=== PATIENT | female | born 1955 | race Caucasian/White ===

== ENCOUNTER 2025-01-20 08:33 | Inpatient (IN) | payer OTHER, SELFPAY ==
[2025-01-18 12:56] VITALS: BP 134/87
[2025-01-18 13:23] LABS: Hematocrit 36.9 % (37.0-47.0); Hemoglobin 12.4 g/dL (12.0-16.0); Mean Corp Hgb Conc. 33.6 g/dL (33.0-37.0); Mean Corpuscular Volume 90.4 fL (81.0-99.0); Nucleated Red Blood Cells % 0 %; Platelet Count 245 10^3/uL (130-400); Red Cell Dist. Width 12.4 % (11.5-14.5)
[2025-01-18 13:31] LABS: ALT (SGPT) 13 U/L (0-35); AST (SGOT) 20 U/L (14-36); Albumin 4.6 g/dl (3.5-5.0); Alkaline Phosphatase 165 U/L (38-126); Blood Urea Nitrogen 16 mg/dl (7-17); Calcium 9.9 mg/dl (8.4-10.2); Carbon Dioxide 27 mmol/L (22-30); Chloride 107 mmol/L (98-107); Glucose 101 mg/dl (70-99); Potassium 5.0 mmol/L (3.5-5.1); Sodium 139 mmol/L (135-145); Total Protein 7.3 g/dl (6.3-8.2); eGFR > 60.00
--- NOTE | 2025-01-18 15:22 | ED.GENMED ---
History of Present Illness
General
Chief Complaint: Skin Problem
Source: patient
Time Seen by Provider: 01/18/25 14:44
History of Present Illness
History of Present Illness:
69-year-old female with left arm discomfort and redness. She had a foreign body removed from her left arm yesterday. She describes a foreign body as being about an inch long. This is done in the urgent care. Starting this morning and getting
worse throughout the day she noted more redness around the area and now red streaks up the arm. She is not diabetic. She denies fevers or chills. No nausea or vomiting. She states she feels well otherwise.
Phy Exam
Physical Exam
Physical Exam:
General: Well-appearing female in no acute respiratory distress
HEENT: Normal cephalic atraumatic
Skin: Erythema noted to the ulnar left forearm in a circular pattern with several lymphangitic streaks spreading to the mid upper arm. There is no underlying fluctuance or induration. This is slightly tender to the touch mild axillary adenopathy
noted
Heart: Regular rate and rhythm
Lungs: Clear no wheeze
Course
Orders/Labs/Results
Orders:
Orders
01/18/25 13:07
Complete Blood Count/With Diff Urgent
Comprehensive Metabolic Panel Urgent
Lactate Level [Lactic Acid] Urgent
Blood Culture Urgent
ARIANNA Source: Blood/Venous
Specimen Description:
01/18/25 15:11
0.9% Sodium Chloride 500 ml [Nss] 500 ml IV BOLUS
01/18/25 15:15
CeFAZolin 1 GRAM [Ancef] 1 gram in 5 ml IV NOW
Abnormal Lab Results
01/18/25
13:07
RBC 4.08 L 10^6/uL
(4.20-5.40)
Hct 36.9 L %
(37.0-47.0)
MPV 10.5 H fL
(7.4-10.4)
Absolute Lymphs (auto) 1.1 L 10^3/uL
(1.2-3.4)
Neutrophils % 77.4 H %
(42.2-75.2)
Lymphocytes % 14.7 L %
(20.5-51.1)
Glucose 101 H mg/dl
(70-99)
Alkaline Phosphatase 165 H U/L
(38-126)
01/18/25 13:07
01/18/25 13:07
Vital Signs
Initial and Last Documented VS:
Initial Vital Signs
Temp Pulse Resp BP Pulse Ox
98.2 F 76 18 134/87 97
01/18/25 12:56 01/18/25 12:56 01/18/25 12:56 01/18/25 12:56 01/18/25 12:56
Last Documented Vital Signs
Temp Pulse Resp BP Pulse Ox
98.2 F 68 18 143/72 98
01/18/25 12:56 01/18/25 17:02 01/18/25 17:02 01/18/25 17:02 01/18/25 17:02
MDM/Problems Addressed
Differential Diagnosis Includes:
Patient with cellulitis to left arm with lymphangitic streaking. This is likely from foreign body that was removed yesterday. Will check labs. Consider IV antibiotics. Discussed with patient options for treatment including admission versus
sending home. She has a history of in the past she tells me that required every visit to the hospital and admission.
*Pulse Oximetry
SaO2: 97
Oxygen Mode of Delivery: Room air
Patient hypoxic: no
*Critical Care Note
Total Time (30-74mins, 75-104mins- exclusive of procedures): Not Applicable
Update Note
Update Note:
Labs reviewed. Patient reassessed after medicine. She states the erythema is spreading. She was given a dose of Ancef here and fluids. Discussed options for treatment including going home with oral antibiotics or staying for IV antibiotics.
Patient and uncomfortable with discharge secondary to the worsening symptoms. Will admit to hospital for cellulitis
ED Attending Note
-
Portions of this chart may have been created with voice recognition software.� Occasional wrong word or��sound alike� substitutions may have occurred due to the inherent limitations of voice recognition software.
Discharge Plan
Departure
Patient Disposition: Admit
Date of Disposition: 01/18/25
Time of Disposition: 17:11
Presentation/result/management discussed w/ accepting MD/DO: Hospitalist
Discharge Problem:
Cellulitis
Referrals:
Steffen Espitia MD [Family Provider, Family Practice]
Interventions
Interventions:
*Risk Screen - Suicide Last Done: 01/18/25 12:56
*General Assessment Last Done: 01/18/25 12:56
ED-Skin Assessment Last Done: 01/18/25 15:30
Discharge Date and Time
Print Language: ICELANDIC
[2025-01-18] MEDS: NSS 500 IV (15:34)
[2025-01-18] MEDS: ANCEF 5 IV (15:35)
[2025-01-18 17:02] VITALS: BP 143/72
--- NOTE | 2025-01-18 20:21 | HPS.HSE ---
Family Physician
-
Family Physician: Steffen Espitia
Chief Complaint
-
Redness Left Forearm
History of Present Illness
Patient is a 69 y/o female without significant past medial history who presents with increasing redness of the left forearm. Patient was working in the garden yesterday. When she came in the house she noted blood dripping down her arm. When she
looked she noticed something stuck in her arm. She went to urgent care who removed a large thorn for the arm. This morning she noticed some mild redness around the puncture site. Over the coarse of the afternoon the area starting increasing in
size and started streaking up the arm prompting her to come to the emergency department for evaluation. She denies any fevers, sweats or chills.
Medical History
Past Medical History
Past Medical History: Reports None
Past Surgical History: Reports Other
Additional Past Surgical History:
Patella Fracture Repair
Social History
Tobacco: Non-smoker
Alcohol: None
Drug: None
Personal:
Family History
Family History: Not pertinent
Allergies / Home Medications
Allergies reflects when Allergies were last updated in Monitor.
Home Medications with original date entered in Monitor
Allergy/Medication List:
Allergies
Allergy/AdvReac Type Severity Reaction Status Date / Time
No Known Allergies Allergy Unverified 01/18/25 12:58
Home Medications
cholecalciferol (vitamin D3) 50 mcg (2,000 unit) tablet 50 mcg PO DAILY 01/18/25
ibuprofen 200 mg tablet (Advil) 400 mg PO BIDPRN PRN mild pain 01/18/25
Review of Systems
-
A 12 point ROS was completed and negative except as noted: Yes
Constitutional: Denies Fever or Chills
Respiratory: Denies Cough or Trouble Breathing
Cardiac: Denies Chest Pain or Palpitations
Abdomen/GI: Denies Abdominal Pain, Nausea or Vomiting
Physical Exam
Vital Signs
Vital Signs
Temp Pulse Resp BP Pulse Ox
98.2 F 68 18 143/72 98
01/18/25 12:56 01/18/25 17:02 01/18/25 17:02 01/18/25 17:02 01/18/25 17:02
Physical Exam
General: Comfortable and Conversant
HEENT: Anicteric and Moist mucous membranes
Respiratory: Clear and Non Labored Respirations
Cardiac: S1/S2 and Regular Rhythm; No Tachycardia
GI: Soft and Non Tender
Rectal: Deferred by Provider
Musculoskeletal: No Clubbing and No Cyanosis
Skin: Warm, Dry and Other (Left Forearm: Small puncture noted with surrounding erythema and in streaking spreading to the mid-upper arm; no fluctuance noted)
Neuro: Awake, Alert, Oriented and No Motor Deficits
Psych: Calm
Laboratory Results
-
01/18/25 13:07
01/18/25 13:07
Laboratory Results
Lactic Acid 1.3 mmol/L (0.7-2.0) 01/18/25 13:07
Total Bilirubin 0.7 mg/dl (0.2-1.3) 01/18/25 13:07
AST 20 U/L (14-36) 01/18/25 13:07
ALT 13 U/L (0-35) 01/18/25 13:07
Alkaline Phosphatase 165 U/L (38-126) H 01/18/25 13:07
Data Reviewed
-
Lab Data: Labs Reviewed by me
Impression/Plan
-
Left Forearm Cellulitis with Lymphangitis
-Continue Ancef
-Give Tetanus booster
DVT proph: Lovenox
Code Status: Full Code
--- NOTE | 2025-01-18 20:41 | W.PN.UPDATE ---
Update Note
Progress Note Update
This note serves as an addendum to the H&P by felt cutting machine operator AURELIANO
Nga DIETERICK
HPI
69F NON diabetic no significant PMHx seen at ER:
- evalaution for left arm discomfort and redness.
- accidental 1 inch long foreign body in Lt fore arm while gardening
- it was removed from her left arm yesterday at [facility]
- this morning and getting worse throughout the day she noted more redness around the area and now red streaks up the arm.
ROS
She denies fevers or chills. No nausea or vomiting.
Vital Signs
Temp Pulse Resp BP Pulse Ox
98.2 F 68 18 143/72 98
01/18/25 12:56 01/18/25 17:02 01/18/25 17:02 01/18/25 17:02 01/18/25 17:02
PE
Gen: not toxic
HEENT: anicteric
Neck: supple
Lungs: CTA
Cor:RRR S1 S2
Abdomen: soft benign
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
Derm:
Erythema at left forearm ulnar side in a circular pattern with several lymphangitic streaks spreading to the mid upper arm. No underlying fluctuance or induration. This is slightly tender to the touch mild axillary adenopathy noted
Psych: nl mood
Labs
01/18/25
13:07
WBC 7.6
Creatinine 0.6
eGFR > 60.00
ASSESSMENT & PLAN
Infected penetrating wound with FB (long thorn like) complicated by cellulitis and spreading lymphangitis of Lt Fore arm
- No signs of sepsis
- s/p FB removal at [facility] yesterday
- Nl WCC and afebrile
- BCx sent
- agree with empiric IV Cefazolin
- If no clinical progress in next 24hrs to consider CT Lt UEX
- PRN pain control
last tetanus Vax less than 10 yrs
- Yesterday , she did not receive tetanus booster
- will give tetanus booster at ER
DVT Px: LMWH
Full code
OBS MS
[2025-01-18] MEDS: ADACEL 0.5 ML IM (21:16)
--- NOTE | 2025-01-18 21:30 | PTCARENOTE ---
Patient arrived from the ED via stretcher. Patient ambulated into the room. AAOx3, VSS. No c/o pain. Left upper extremity cellulitis is outlined with skin safe marker. Erythema and warmth to the site. Patient educated on IV abx. Call batista is within
reach.
[2025-01-18 21:31] VITALS: BP 137/90; BMI 19.9
[2025-01-18] MEDS: ANCEF 10 IV (23:21)
[2025-01-19 07:00] VITALS: BP 139/85
--- NOTE | 2025-01-19 07:00 | W.PN.HOSP.TC ---
Today's Communication/Plan
-
de-escalate IV abx to Augmentin
Likely discharge tomorrow if continues to improve
Assessment / Plan
Assessment / Plan
Physical Exam
General: Comfortable and Conversant
HEENT: Anicteric and Moist mucous membranes
Respiratory: Clear and Non Labored Respirations
Cardiac: S1/S2 and Regular Rhythm; No Tachycardia
GI: Soft and Non Tender
Musculoskeletal: No Clubbing and No Cyanosis
Skin: Warm, Dry, LUE cellulitis appears signicantly improved in comparison to lines of demarcarcation
Neuro: AOx3 conversant coherent
Psych: Calm
69F no significant PMHx here with severe LUE cellulitis after foreign body (thorn from gardening) was removed at urgent care center.
Left Forearm Cellulitis with Lymphangitis
-Given Tetanus booster
-improving on Ancef, de-escalate to Augmentin
DVT proph: Lovenox
Code Status: Full Code
I spent a total of 40 minutes with the patient or on the floor. More than 50% of this time involved counseling and coordination of care.
Anticipated Discharge: Within 24 hours
Subjective/Interval History
-
Date of Service: January 19, 2025
Seen and examined at bedside in no acute distress sitting up comfortably in bed. Overall reports feeling well. Cellulitis LUE sigifnicantly improved in comparison to lines of demarcation.
Objective Data
-
Vital Signs:
Vital Signs
Temp Pulse Resp BP Pulse Ox
98.1 F 81 16 137/90 95
01/18/25 21:31 01/18/25 21:31 01/18/25 21:31 01/18/25 21:31 01/18/25 21:50
[2025-01-19] MEDS: ANCEF 10 IV (08:57)
[2025-01-19 10:28] VITALS: BMI 19.4
[2025-01-19] MEDS: AMOXIL 500 MG PO ×2 (13:18→19:55)
--- NOTE | 2025-01-19 13:51 | CM ---
Met with patient to obtain information for assessment. Patient stated that she lives with her spouse in a two story home with two steps to enter. She stated that she has a first floor set up.Two steps to enter. Patient described herself as
independent with all of her ADLs, personal care, dressing and bathing. 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 She has never had VN services. She has not been to a SNF. She has no DME.
Patient has a prescription plan and uses, [facility] in [place] for all of her medications.
Patient's PCP is, Steffen Espitia.
Plan: Case management will continue to follow and assist with discharge planning. Patient should be no needs.
[2025-01-19 15:00] VITALS: BP 109/58
[2025-01-19 23:57] VITALS: BP 120/75
[2025-01-20] MEDS: AMOXIL 500 MG PO ×2 (03:49→13:05)
[2025-01-20 07:00] VITALS: BP 127/73
[2025-01-20 08:04] LABS: Hematocrit 35.2 % (37.0-47.0); Hemoglobin 11.5 g/dL (12.0-16.0); Mean Corp Hgb Conc. 32.7 g/dL (33.0-37.0); Mean Corpuscular Volume 90.7 fL (81.0-99.0); Platelet Count 223 10^3/uL (130-400); Red Cell Dist. Width 12.5 % (11.5-14.5)
[2025-01-20 08:38] LABS: Blood Urea Nitrogen 13 mg/dl (7-17); Calcium 9.2 mg/dl (8.4-10.2); Carbon Dioxide 30 mmol/L (22-30); Chloride 107 mmol/L (98-107); Estimated Creatinine Clearance 76 ml/min; Glucose 86 mg/dl (70-99); Magnesium 2.2 mg/dl (1.6-2.3); Potassium 4.3 mmol/L (3.5-5.1); Sodium 140 mmol/L (135-145); eGFR > 60.00
--- NOTE | 2025-01-20 09:24 | W.PN.HOSP.TC ---
Today's Communication/Plan
-
discharge
Assessment / Plan
Assessment / Plan
Physical Exam
General: Comfortable and Conversant
HEENT: Anicteric and Moist mucous membranes
Respiratory: Clear and Non Labored Respirations
Cardiac: S1/S2 and Regular Rhythm; No Tachycardia
GI: Soft and Non Tender
Musculoskeletal: No Clubbing and No Cyanosis
Skin: Warm, Dry, LUE cellulitis continues to improve significantly
Neuro: AOx3 conversant coherent
Psych: Calm
69F no significant PMHx here with severe LUE cellulitis after foreign body (thorn from gardening) was removed at urgent care center.
Left Forearm Cellulitis with Lymphangitis
-Given Tetanus booster
-improving on Ancef, de-escalate to Augmentin
-LUE cellulitis continues to improve on oral abx
-Medically stable for discharge home with outpatient follow up recommendations.
DVT proph: patient ambulating regularly without need for assist device
Code Status: Full Code
Total Time Preparing Discharge ___40____ minutes including examination of the patient, summary of the hospital stay, instructions for continuing care to all relevant caregivers; and preparation of discharge records, prescriptions, and referral
forms if necessary.
Anticipated Discharge: Today
Subjective/Interval History
-
Date of Service: January 20, 2025
Seen and examined at bedside in no acute distress, sitting up comfortably in chair. Overall reports feeling well. LUE cellulitis continues to improve.
Objective Data
-
Labs:
Laboratory Results
01/20/25
07:18
WBC 4.3 L
Hgb 11.5 L
Hct 35.2 L
Plt Count 223
Sodium 140
Potassium 4.3
Chloride 107
Carbon Dioxide 30
BUN 13
Creatinine 0.5 L
Glucose 86
Calcium 9.2
Vital Signs:
Vital Signs
Temp Pulse Resp BP Pulse Ox
97.6 F 74 16 127/73 98
01/20/25 07:00 01/20/25 07:00 01/20/25 07:00 01/20/25 07:00 01/20/25 07:00
I&O
01/19/25 01/20/25 01/21/25
06:59 06:59 06:59
Intake Total 960 / 960
Balance 960 / 960
--- NOTE | 2025-01-20 12:14 | W.DCSUMMARY ---
Discharge Summary
Discharge Data
Date of Admission: 01/20/25
Date of Discharge: 01/20/25
-
Pending Results: Yes
Additional Pending Results:
official culture results
Discharge Plan
-
Patient Disposition: Home (Routine Discharge)
Discharge Diagnosis/Procedures: Left Upper Extremity Cellulitis
Condition: Good
Diet: Regular
Activity: As tolerated
Driving Restrictions: As prior to admission
Bathing Restrictions: None
Activity Restrictions/Additional Instructions:
Follow up with primary care provider in 1 week of discharge.
5 day course of Amoxicillin prescribed to complete treatment left upper extremity cellulitis.
Please take medications as prescribed/recommended and follow up with primary care provider and/or other healthcare provider involved in your care for adjustments to your medication regimen as necessary.
Referrals:
Steffen Espitia MD [Family Provider, Family Practice] - in one week
Prescriptions:
New
amoxicillin 500 mg Capsule
500 mg PO Q8H 5 Days Qty: 15 0RF
Continued
ibuprofen [Advil] 200 mg Tablet
400 mg PO BIDPRN PRN (Reason: mild pain)
cholecalciferol (vitamin D3) 50 mcg (2,000 unit) Tablet
50 mcg PO DAILY
Discharge Orders:
Discharge Patient (As Directed); Ordered 01/20/25
Ordered By: Stefany Aguiar
Discharge Date and Time
Print Language: KHMER
[2025-01-20 13:41] VITALS: BP 128/66
--- NOTE | 2025-01-20 13:55 | CM ---
Patient seen at bedside in 4 east. Patient stated that she was for discharge home today. Patient plan is to drive her self home. with car parked in lot. Patient stated that she has told staff her plan. Patient given IMM and signed form placed on
chart. Patient with no needs for VN at this time. CM will continue to follow for discharge planning needs.
Plan; home with no needs.
== END 2025-01-20 14:40 | disposition home or self-care (01) | DRG 603 ==
LOC: 4 EAST ACU 08:33
PROVIDERS: Emergency Medicine; ADMITTING PHYSICIAN Internal Medicine; ATTENDING PHYSICIAN Internal Medicine; EMERGENCY PHYSICIAN Student in an Organized Health Care Education/Training Program; FAMILY PHYSICIAN Family Medicine
PROC: 3E0234Z Introduction of Serum, Toxoid and Vaccine into Muscle, Percutaneous Approach (ICD-10-PCS; 2025-01-18)
DX: L03.114 Cellulitis of left upper limb (principal); S51.832A Puncture wound without foreign body of left forearm, initial encounter; W60.XXXA Contact with nonvenomous plant thorns and spines and sharp leaves, initial encounter; Z23 Encounter for immunization
CPT/HCPCS: 80048; 80053; 83605; 83735; 84100; 85025; 85027; 87040; 90471; 90715; 96361; 96374; 99284

== ENCOUNTER 2025-03-24 18:32 | Emergency (ER) | payer OTHER, SELFPAY ==
[2025-03-24 18:42] VITALS: BP 145/103
[2025-03-24 19:09] LABS: Hematocrit 37.6 % (37.0-47.0); Hemoglobin 12.8 g/dL (12.0-16.0); Mean Corp Hgb Conc. 34.0 g/dL (33.0-37.0); Mean Corpuscular Volume 87.9 fL (81.0-99.0); Nucleated Red Blood Cells % 0 %; Platelet Count 299 10^3/uL (130-400); Red Cell Dist. Width 12.4 % (11.5-14.5)
[2025-03-24 19:40] LABS: ALT (SGPT) 17 U/L (0-35); AST (SGOT) 21 U/L (14-36); Albumin 4.5 g/dl (3.5-5.0); Alkaline Phosphatase 153 U/L (38-126); Blood Urea Nitrogen 17 mg/dl (7-17); Calcium 10.1 mg/dl (8.4-10.2); Carbon Dioxide 27 mmol/L (22-30); Chloride 104 mmol/L (98-107); Glucose 98 mg/dl (70-99); Potassium 4.6 mmol/L (3.5-5.1); Sodium 135 mmol/L (135-145); Total Protein 7.1 g/dl (6.3-8.2); eGFR > 60.00
[2025-03-24 19:49] VITALS: BP 147/75
[2025-03-24 19:53] VITALS: BMI 19.6
[2025-03-24 19:56] LABS: Troponin I < 0.012 ng/ml
[2025-03-24] MEDS: ANTIVERT 25 MG PO (20:28)
[2025-03-24 21:00] VITALS: BP 136/78
--- NOTE | 2025-03-24 21:02 | ED.GENMED ---
History of Present Illness
General
Chief Complaint: Chest Pain
Time Seen by Provider: 03/24/25 19:52
Nursing documentation reviewed up to this point in time: agreed with
History of Present Illness
History of Present Illness:
69-year-old female presents to the ER for evaluation of feeling unusual today. She describes it as sensation of head pressure and possible ear ringing. She also became very nauseated and had an episode of emesis. She states that this is similar
to an episode she experienced over Labor Day weekend for which she was evaluated at [facility] emergency department. She reports that she had a CT of her head and was prescribed meclizine which she was taking and has had 2 follow-up appointments with
her primary care physician. Primary care physician gave her a course of prednisone this week which she completed yesterday. She has not had any meclizine in the past 6 days. She denies fevers or chills. No otalgia. No cough or cold symptoms.
She states that in the car on the way over to the emergency department she had a awareness of some discomfort in her chest which was reproducible on palpation and has spontaneously alleviated itself. She also briefly had paresthesias to her
bilateral feet. She denies any change in vision, no paresthesias at the current time. She denies any focal weakness. She denies any difficulty with ambulation. She works as a hairstylist. She was given a prescription for outpatient MRI and
vestibular therapy but has not completed either yet.
Past History
Past History
ED Past Medical History: None
Review of Systems
Review of Systems
Allergies reviewed?: Yes
Phy Exam
Physical Exam
Physical Exam:
Patient is awake, alert, appears in no acute distress, head is NCAT, PERRL, EOMI mucous membranes moist, bilateral tympanic membranes are examination, no nystagmus elicited on exam, conjunctiva pink, heart regular rate and rhythm without murmurs or
ectopy, lungs are clear to auscultation without wheezes rales or rhonchi, no JVD, abdomen is soft and nontender on palpation, extremities without edema, GCS is 15, no dysdiadochokinesia, no ataxia, no pronator drift, no rash. NIH stroke scale 0
Scores
Heart Score for Chest Pain Patients
STEMI patient?: No
History: Slightly or Non-Suspicious
ECG: Normal
Age: >/= 65 years
Risk Factors: No Risk Factors
Troponin: </= Normal Limit
Heart Score for Chest Pain Patients: 2
Heart Score Risk: 2.5% MACE over next 6 weeks
Course
Orders/Labs/Results
Orders:
Orders
03/24/25 18:49
Electrocardiogram (*1) Urgent
Reason for Study: Chest Pain
EKG- Treatment ONCE
03/24/25 18:59
Complete Blood Count/With Diff Urgent
Comprehensive Metabolic Panel Urgent
Troponin I Urgent
03/24/25 20:13
Meclizine [Antivert] 25 mg PO NOW STA
Abnormal Lab Results
03/24/25
18:59
Abs Immat Gran (auto) 0.1 H 10^3/uL
(0-0.05)
Absolute Neuts (auto) 6.9 H 10^3/uL
(1.4-6.5)
Lymphocytes % 18.3 L %
(20.5-51.1)
Creatinine 0.5 L mg/dL
(0.6-1.0)
Alkaline Phosphatase 153 H U/L
(38-126)
03/24/25 18:59
03/24/25 18:59
CBC within normal limits. Chemistries also normal. Troponin negative
Vital Signs
Initial and Last Documented VS:
Initial Vital Signs
Temp Pulse Resp BP Pulse Ox
98 F 88 18 145/103 98
03/24/25 18:42 03/24/25 18:42 03/24/25 18:42 03/24/25 18:42 03/24/25 18:42
Last Documented Vital Signs
Temp Pulse Resp BP Pulse Ox
98 F 59 11 136/78 94
03/24/25 18:42 03/24/25 21:30 03/24/25 21:30 03/24/25 21:00 03/24/25 21:30
MDM/Problems Addressed
Differential Diagnosis Includes:
Differential diagnosis considered but not dyscrasia, arrhythmia, ACS, vertigo along with other etiologies considered
*Pulse Oximetry
SaO2: 97
Oxygen Mode of Delivery: Room air
Patient hypoxic: no
*EKG
Interpreted by ED Provider?: Yes (I independently viewed and interpreted twelve-lead EKG showing normal sinus rhythm, rate 71, borderline LVH, normal axis, normal intervals, no ST elevation close is a normal tracing, no prior for comparison)
*Electrical Maintenance Mechanic Interpretation
Rate: normal (I independently viewed and interpreted rhythm strip showing normal sinus rhythm, no ectopy)
*Critical Care Note
Total Time (30-74mins, 75-104mins- exclusive of procedures): Not Applicable
Update Note
Update Note:
Patient feeling well during period of observation in the ER. She was given dose of meclizine while awaiting test results. Once all results were able, I discussed with patient present at bedside very reassuring lab results. Negative
troponin. Normal EKG. I discussed with her benefit of follow-up with her primary care physician to obtain her outpatient MRI as previously prescribed, along with vestibular therapy referral. I discussed with her medication usage and strict return
precautions. Patient and felt comfortable with plan for discharge and had no questions prior to leaving the department.
ED Attending Note
-
Portions of this chart may have been created with voice recognition software.� Occasional wrong word or��sound alike� substitutions may have occurred due to the inherent limitations of voice recognition software.
Discharge Plan
Departure
Patient Disposition: Home (Routine Discharge)
Date of Disposition: 03/24/25
Time of Disposition: 21:10
Patient with high blood pressure during this ER visit?: Yes
Discharge Problem:
Vertigo
Instructions: Vertigo - ED (DC), Chest Pain PCP Follow Up
Prescriptions:
New
meclizine 25 mg tablet
25 mg PO TID Qty: 21 0RF
No Action
ibuprofen [Advil] 200 mg Tablet
200 mg PO DAILYPRN PRN (Reason: mild pain)
cholecalciferol (vitamin D3) 50 mcg (2,000 unit) Tablet
50 mcg PO DAILY
methylprednisolone 4 mg tablets,dose pack
See Rx Instructions .ROUTE .COMPLEX
Rx Instructions:
6 tabs day 1
5 tabs day 2
4 tabs day 3
3 tabs day 4
2 tabs day 5
1 tab day 6
meclizine 25 mg tablet
25 mg PO TIDPRN PRN (Reason: dizziness)
Referrals:
Cheryl Torres PA-C [Family Provider]
Activity Restrictions/Additional Instructions:
Encourage fluids. Please continue using meclizine as prescribed to help with your symptoms of dizziness. Please schedule MRI and vestibular therapy appointment as previously referred by your primary care physician. Please follow-up with your
primary care doctor for reevaluation and further care. Return to the ER for any concerns
Interventions
Interventions:
*Risk Screen - Suicide Last Done: 03/24/25 18:42
*General Assessment Last Done: 03/24/25 21:32
*Neglect/Abuse Screening Last Done: 03/24/25 21:32
*ED- Fall Risk Assessment Last Done: 03/24/25 21:32
*ED COVID-19 Vaccine History Last Done: 03/24/25 21:32
*Nursing Disposition Last Done: 03/24/25 21:32
ED- Cardiac Assessment Last Done: 03/24/25 19:54
Discharge Date and Time
Discharge Date/Time: 03/24/25 21:33
Print Language: BELARUSIAN
== END 2025-03-24 21:33 | disposition home or self-care (01) ==
LOC: EMR 18:32
PROVIDERS: EMERGENCY PHYSICIAN Emergency Medicine; FAMILY PHYSICIAN Physician Assistant Medical
DX: R42 Dizziness and giddiness (principal); R07.89 Other chest pain
CPT/HCPCS: 99284; 80053; 84484; 85025; 93005